=== PATIENT | male | born 1995 | race Caucasian/White ===

== ENCOUNTER 2020-03-16 14:18 | Emergency (ER) | payer BC, SELFPAY ==
[2020-03-16 14:19] VITALS: BP 152/104; PULSE 78; RESP 18; TEMP 36.4; O2SAT 99; BMI 35.2
[2020-03-16 15:10] LABS: Apearance,Urine Clear (Clear); Color,Urine Yellow (Yellow)
[2020-03-16 15:11] LABS: Bilirubin,Urine Negative (Negative); Blood, Urine Negative (Negative); Glucose,Urine (UA) Negative (Negative); Ketones,Urine Negative (Negative); Protein,Urine Negative (Negative); UTC Leukocyte Esterase,Urine Negative (Negative); UTC Nitrate,Urine Negative (Negative); Urobilinogen,Urine 0.2 EU/dl (0.2)
--- NOTE | 2020-03-16 15:24 | HMH.EDUTC ---
[facility] [place] Impression: Low back pain Qualifiers: Chronicity: unspecified Back pain laterality: right Sciatica presence: without sciatica Qualified Code(s): M54.5 - Low back pain Disposition: Home, Self-Care Condition on Discharge: Good Instructions: Low Back Pain, DI for Low Back Pain, Naproxen Additional Instructions: *Naproxen as prescribed with meal as needed for pain/inflammation *Not additional anti-inflammatory like motrin, aleve, advil with the above amount of Naproxen You can still take Tylenol every 4 hours as needed if you need something else for pain *Ice 20 minutes every 2 hours for the first 48 hours after the initial injury followed by moist heat every 20 minutes 3-4 times a day to affected area *Keep this area active, no movement leads to more stiffness, However take it easy and avoid heavy lifting pushing or pulling *Follow up with you family doctor if no improvement for further treatment Follow up with family doctor if no improvement or any worsening of symtpoms Return if needed Straight to ER if any life threatening symptoms Prescriptions: Naproxen [Naproxen 500mg tab] 500 mg PO BID 5 Days #10 tab Transmission Status: Received by [employer] [facility] #[id number] Referrals: Huy Rao MD [Primary Care Provider] - As needed Time of Disposition: 15:32 Medical Decision Making - Misael Inquiry Pt receiving controlled substance: No Misael was queried for this patient: No Vital Signs: 03/16/20 14:19 03/16/20 15:42 Temperature 97.6 F 97.6 F Temperature Source Oral Oral Pulse Rate 78 Pulse Rate [Radial] 78 Respiratory Rate 18 18 Blood Pressure 152/104 H Blood Pressure [Right Arm] 152/104 H Blood Pressure Mean [Right Arm] 120 Blood Pressure Source Automatic Cuff Blood Pressure Source [Right Arm] Automatic Cuff Blood Pressure Position Sitting Blood Pressure Position [Right Arm] Sitting 02 Sat by Pulse Oximetry 99 Oxygen Delivery Method Room Air Room Air - Lab Data Lab results reviewed: Yes: I reviewed the patient's lab results. Lab Results 03/16/20 14:56: Urine Color Yellow, Urine Appearance Clear, Urine pH 6.0, Ur Specific [place] 1.020, Urine Protein Negative, Urine Glucose (UA) Negative, Urine Ketones Negative, Urine Blood Negative, Urine Nitrate Negative, Urine Bilirubin Negative, Urine Urobilinogen 0.2, Ur Leukocyte Esterase Negative [facility] [place] - General Stated complaint: back pain in mornings Time Seen by Provider: 03/16/20 15:24 Mode of Arrival: Ambulatory Source of Information: Patient Limitations: No Limitations Description of Symptoms (Recalled from Triage Doc. by RN): States that for a couple of months now he has been having troubles with urination. Low back pain, sweet urine smell and states that he isn't peeing enough. HEENT Symptoms (Recalled from RN notes): No Resp Symptoms (Recalled from RN notes): No Skin Symptoms (Recalled from RN notes): No MS Symptoms (Recalled from RN notes): No Functional Status (Recalled from RN notes): wnl - History of Present Illness Provider Complaint: Patient states that he has been having stiffness and achy like feeling in his right lower back area for a couple months States that as he gets up and moving the pain goes away States that he hurt his back several years ago and has problems on and off State that he also wants to get checked for UTI states that when he wakes up in the morning he isnt urinating as much as he use too and it has a odor to it - Related Data Previous Rx's Medication Instructions Recorded Naproxen [Naproxen 500mg tab] 500 mg PO BID 5 Days #10 tab 03/16/20 Allergies Allergy/AdvReac Type Severity Reaction Status Date / Time Penicillins [PENICILLINS] Allergy Severe S-BLISTERING Unverified 09/06/17 14:57 WELTS - Worker's Comp Is this a Worker's Comp case?: No [facility] History - Hepatitis A Screen Drug use history?: No High risk sexual behaviors?: No History of sexually transmitt
[2020-03-16 15:42] VITALS: BP 152/104; PULSE 78; RESP 18; TEMP 36.4; O2SAT 99
== END 2020-03-16 15:43 | disposition home or self-care (01) ==
PROVIDERS: Emergency Provider Nurse Practitioner; PCP Family Medicine
DX: R31.9 Hematuria, unspecified (principal); M54.5 Low back pain; Z88.0 Allergy status to penicillin
CPT/HCPCS: 81003; 99201

== ENCOUNTER 2020-04-03 18:12 | Emergency (ER) | payer BC, SELFPAY ==
[2020-04-03 18:26] VITALS: BP 146/91; PULSE 102; RESP 20; TEMP 36.8; O2SAT 98; BMI 34.4
--- NOTE | 2020-04-03 18:31 | HMH.EDUTC ---
[facility] [place] Clinical Impression: URI (upper respiratory infection) Qualifiers: URI type: unspecified URI Qualified Code(s): J06.9 - Acute upper respiratory infection, unspecified Disposition: Home, Self-Care Condition on Discharge: Good Instructions: Sore Throat, Azithromycin Additional Instructions: *Monitor Temp, Over the counter Motrin or Tylenol as directed/as needed Tylenol every 4 hours and Motrin every 6 hours (as long as your family doctor has told you that you can take it) for fever or pain. and straight to ER if unable to lower temp less than 101.0 after medication given *Warm salt water gargles may help to soothe the throat *Throat Lozenges *Warm fluids like tea with honey may help to soothe the throat *Sleep elevated *Humidifier/Vaporizer *Flonase 2 sprays in each nostril daily but be aware that it may take 2-3 days before you notice improvement Your throat swab was sent for culture. Those results are typically sent to your primary care. Be sure to follow up in 2-3 days with your family doctor/primary care physician if no improvement so they can review those result and treat if necessary. If you don?t have a primary care doctor, I recommend you get one but in the mean time, you will have to return to a walk in clinic Follow up IMMEDIATELY for new or worsening symptoms or no Noticeable improvement over the next 48-72 hours. 911 for difficulty breathing or swallowing Prescriptions: Fluticasone Propionate [Flonase 50mcg nasal spray 16gm] 1 - 2 spr NS DAILY #1 bottle Transmission Status: Pending to [facility] # Azithromycin [Z-David 250mg Tab] 250 mg PO DIRECTED #6 tab Transmission Status: Pending to [facility] # Referrals: Huy Rao MD [Primary Care Provider] - As needed Time of Disposition: 18:39 Medical Decision Making - Misael Inquiry Pt receiving controlled substance: No Misael was queried for this patient: No Vital Signs: 04/03/20 18:26 Temperature 98.3 F Temperature Source Oral Pulse Rate [Right Brachial] 102 H Respiratory Rate 20 Blood Pressure [Right Arm] 146/91 H Blood Pressure Mean [Right Arm] 109 Blood Pressure Source [Right Arm] Automatic Cuff Blood Pressure Position [Right Arm] Sitting 02 Sat by Pulse Oximetry 98 Oxygen Delivery Method Room Air - Lab Data Lab results reviewed: Yes: I reviewed the patient's lab results. Lab Results 04/03/20 18:14: Strep Scn Rapid Clinic Negative Orders (Tests/Meds): ORDERS Category Date Time Status Strep Screen Confirmation Stat Micro 04/03/20 18:14 Received Medical Decision Narrative: Recommended COVID19 testing and patient declined [facility] [place] - General Stated complaint: cough sore throat Time Seen by Provider: 04/03/20 18:31 Mode of Arrival: Ambulatory Source of Information: Patient Limitations: No Limitations Description of Symptoms (Recalled from Triage Doc. by RN): PATIENT C/O SORE THROAT AND COUGH SINCE LAST TUESDAY HEENT Symptoms (Recalled from RN notes): Yes Resp Symptoms (Recalled from RN notes): Yes Skin Symptoms (Recalled from RN notes): No MS Symptoms (Recalled from RN notes): No Functional Status (Recalled from RN notes): WNL - History of Present Illness Provider Complaint: Patient states that he has been having sore throat on and off since last week States that he has been having sore throat and sinus congestion States that it feels like it did before when he had strep throat - Related Data Previous Rx's Medication Instructions Recorded Azithromycin [Z-David 250mg Tab] 250 mg PO DIRECTED #6 tab 04/03/20 Fluticasone Propionate [Flonase 1 - 2 spr NS DAILY #1 bottle 04/03/20 50mcg nasal spray 16gm] Allergies Allergy/AdvReac Type Severity Reaction Status Date / Time Penicillins [PENICILLINS] Allergy Severe S-BLISTERING Verified 04/03/20 18:31 WELTS - Worker's Comp Is this a Worker's Comp case?: No [facility] History - Hepatitis A Screen
[2020-04-03 18:33] LABS: UTC Strep Screen (Rapid) Negative (Negative)
[2020-04-03 18:40] VITALS: BP 146/91; PULSE 102; RESP 20; TEMP 36.8; O2SAT 98
== END 2020-04-03 18:44 | disposition home or self-care (01) ==
PROVIDERS: Emergency Provider Nurse Practitioner; PCP Family Medicine
DX: J06.9 Acute upper respiratory infection, unspecified (principal); Z88.0 Allergy status to penicillin
CPT/HCPCS: 87880; 99201

== ENCOUNTER 2022-07-23 17:31 | Emergency (ER) | payer BC, SELFPAY ==
[2022-07-23 17:43] VITALS: BP 129/76; PULSE 110; RESP 15; TEMP 37.6; O2SAT 98; BMI 34.0
--- NOTE | 2022-07-23 17:46 | EXP.UTC ---
Discharge Plan Disposition Patient Disposition: Home, Self-Care Condition: Fair Prescriptions Prescriptions: New promethazine-DM 6.25-15 mg/5 mL Syrup 5 ml PO Q6H PRN (Reason: Cough) Qty: 180 0RF prednisone [prednisone] 20 mg tablet 20 mg PO BID 5 Days Qty: 10 0RF albuterol sulfate [Ventolin HFA] 90 mcg/actuation HFA aerosol inhaler 2 puffs inhalation QIDP PRN (Reason: Wheezing) 30 Days Qty: 1 0RF No Action azithromycin 250 MG tablet 250 mg PO DIRECTED Qty: 6 0RF Rx Instructions: Take two (2) tablets on day #1, then one (1) tablet day #2 thru #5 fluticasone propionate 120 SPR/BOT bottle 1 - 2 spr NS DAILY Qty: 1 0RF Rx Instructions: each nostril daily Referrals Follow up/Referrals: Provider,Referral, MD [Primary Care Provider] - See instructions Activity Restrictions/Add. Instructions Additional Instructions/Restrictions: Upper respiratory panel pending. Please isolate yourself until test results received Clinical Impressions Clinical Impression: URI (upper respiratory infection) Stand Alone Forms Stand Alone Forms: Work/School Release Instructions Patient Instructions: DI for Influenza -- Adult Discharge ED Provider: Aaliyah Mckay [facility] [place] H[place] General Stated complaint: covid test Mode of Arrival: Ambulatory Source of Information: Patient Limitations: No Limitations Time Seen by Provider: 07/23/22 18:13 Description of Symptoms (Recalled from Triage Doc. by RN): pt comes in with c/o body aches, headache, cough. symptoms began today HEENT Symptoms (Recalled from RN notes): Yes Resp Symptoms (Recalled from RN notes): Yes Skin Symptoms (Recalled from RN notes): No MS Symptoms (Recalled from RN notes): No Functional Status (Recalled from RN notes): n/a History of Present Illness Provider Complaint: Cough, congestion, headaches, body aches X 1 day. Not sure about fever. Has severe back pain. Onset (ago): day(s) (1) Location: chest and back Relieving factors: none Exacerbating factors: none Associated symptoms: cough, fever/chills and headaches Treatments prior to arrival: none Related Data Previous Rx's Medication Instructions Recorded azithromycin 250 mg tablet 250 mg PO DIRECTED #6 tabs 04/03/20 fluticasone propionate 50 1 - 2 spr NS DAILY ##1 04/03/20 mcg/actuation nasal spray,suspension albuterol sulfate 90 mcg/actuation 2 puffs inhalation QIDP PRN 07/23/22 aerosol inhaler (Ventolin HFA) Wheezing 30 days #1 ea prednisone 20 mg tablet 20 mg PO BID 5 days #10 tabs 07/23/22 promethazine-DM 6.25 mg-15 mg/5 mL 5 ml PO Q6H PRN Cough #180 mL 07/23/22 oral syrup Allergies Allergy/AdvReac Type Severity Reaction Status Date / Time Penicillins [PENICILLINS] Allergy Severe S-BLISTERING Verified 07/23/22 17:46 WELTS Worker's Comp Is this a Worker's Comp case?: No [facility] Social History Smoking Status: Never smoker second hand exposure: No alcohol intake: never current occupational status: other Travel in the last 8 weeks: None ROS Obtained: Yes All systems reviewed & no additional complaints except as documented Constitutional Constitutional: Reports body ache, Reports chills and Reports fever(s) Respiratory Respiratory: Reports chest congestion and Reports cough Musculoskeletal Musculoskeletal: Reports back pain and Reports myalgias Physical Exam General General appearance: alert and in no apparent distress Head Head exam: atraumatic, normocephalic and normal inspection Eye Eye exam: Present normal appearance, PERRL and EOMI ENT ENT exam: Present normal exam, normal oropharynx, mucous membranes moist, TM's normal bilaterally and normal external ear exam Neck Neck exam: Present normal inspection, full ROM and trachea midline; Absent meningismus or lymphadenopathy Chest Chest inspection: Present normal inspection and symmetric chest wall rise; Absent tenderness
[2022-07-23 17:56] LABS: UTC Influenza A Antigen Negative (Negative)
[2022-07-23 17:57] LABS: UTC Influenza B Antigen Negative (Negative)
[2022-07-23 18:23] VITALS: BP 129/76; PULSE 90; RESP 15; TEMP 37.6
[2022-07-23 18:48] LABS: Adenovirus,PCR Not Detected (NotDetected); Bordetella Pertussis Not Detected (NotDetected); Chlamydophila Pneumoniae, PCR Not Detected (NotDetected); Coronavirus 229E Not Detected (NotDetected); Coronavirus NL63 Not Detected (NotDetected); Coronavirus OC43 Not Detected (NotDetected); Coronovirus HKU1,PCR Not Detected (NotDetected); Human Metapneumovirus Not Detected (NotDetected); Influenza A, PCR Not Detected (NotDetected); Influenza AH1, 2009 Not Detected (NotDetected); Influenza AH1, PCR Not Detected (NotDetected); Influenza AH3,PCR Not Detected (NotDetected); Influenza B, PCR Not Detected (NotDetected); Mycoplasma Pneumoniae, PCR Not Detected (NotDetected); Parainfluenza 1, PCR Not Detected (NotDetected); Parainfluenza 2, PCR Not Detected (NotDetected); Parainfluenza 3, PCR Not Detected (NotDetected); Parainfluenza 4, PCR Not Detected (NotDetected); Respiratory Syncytial Virus Not Detected (NotDetected); Rhinovirus/Enterovirus Not Detected (NotDetected)
[2022-07-23 22:44] LABS: Coronavirus 19, PCR Detected (NotDetected)
== END 2022-07-23 18:28 | disposition home or self-care (01) ==
PROVIDERS: Emergency Provider Physician Assistant
DX: J06.9 Acute upper respiratory infection, unspecified (principal)
CPT/HCPCS: 87581; 87632; 87798; 87804; 99212; C9803; G0463; U0003; U0005

== ENCOUNTER 2023-08-28 15:10 | Emergency (ER) | payer BC, SELFPAY ==
[2023-08-28 15:25] VITALS: BP 136/87; PULSE 74; RESP 18; TEMP 37.1; O2SAT 98; BMI 29.5
--- NOTE | 2023-08-28 15:44 | EXP.UTC ---
Discharge Plan Disposition Patient Disposition: Home, Self-Care Condition: Good Prescriptions Prescriptions: New azithromycin [Zithromax Z-David] 250 mg tablet See Rx Instructions .ROUTE .COMPLEX 5 Days Qty: 6 0RF Rx Instructions: For 250 mg dose pack: take 500 mg today (day 1), then 250 mg for 4 days (days 2-5) methylprednisolone [Medrol (David)] 4 mg tablets,dose pack See Rx Instructions .Route .COMPLEX 6 Days Qty: 21 0RF Rx Instructions: taper pack; qowdkugqgmyhiqv-hpfhhubdl-AF [Bromfed DM] 2-30-10 mg/5 mL Syrup 10 ml PO Q4H PRN (Reason: Cough) Qty: 240 0RF guaifenesin [Mucinex] 600 mg tablet extended release 12hr 1,200 mg PO BID PRN (Reason: cough) Qty: 20 0RF Referrals Follow up/Referrals: Huy Rao MD [Primary Care Provider] - See instructions Activity Restrictions/Add. Instructions Additional Instructions/Restrictions: *Monitor Temp, Over the counter Motrin or Tylenol as directed/as needed Tylenol every 4 hours and Motrin every 6 hours (as long as your family doctor has told you that you can take it) for fever or pain. and straight to ER if unable to lower temp less than 101.0 after medication given *Warm salt water gargles may help to soothe the throat *Throat Lozenges? *Warm fluids like tea with honey may help to soothe the throat? *Sleep elevated *Humidifier/Vaporizer *Bromfed may cause drowsiness. Know how it effects you (your child) before driving, caring for small child, or sending your child to school. Not other antihistamines/allergy medications while taking bromfed Your throat swab was sent for culture. Those results are typically sent to your primary care. Be sure to follow up in 2-3 days with your family doctor/primary care physician if no improvement so they can review those result and treat if necessary. If you don?t have a primary care doctor, I recommend you get one but in the mean time, you will have to return to a walk in clinic Follow up IMMEDIATELY for new or worsening symptoms or no Noticeable improvement over the next 48-72 hours. 911 for difficulty breathing or swallowing Clinical Impressions Clinical Impression: Sinusitis Qualifiers: Sinusitis location: unspecified location Chronicity: unspecified Qualified Code(s): J32.9 - Chronic sinusitis, unspecified Instructions Patient Instructions: Sinusitis, DI for Sinusitis Discharge ED Provider: Monica Davis [facility] [place] HPI General Stated complaint: cough, fever, congestion Mode of Arrival: Ambulatory Source of Information: Patient Limitations: No Limitations Time Seen by Provider: 08/28/23 15:44 Description of Symptoms (Recalled from Triage Doc. by RN): PATIENT C/O COUGH, FEVER, CONGESTION, AND DIZZINESS X 1 WEEK HEENT Symptoms (Recalled from RN notes): Yes Resp Symptoms (Recalled from RN notes): Yes Skin Symptoms (Recalled from RN notes): No MS Symptoms (Recalled from RN notes): No Functional Status (Recalled from RN notes): WNL History of Present Illness Provider Complaint: Patient states that for the last week he has been having sinus pain and pressure, thick yellowish green drainage from his sinuses, sore throat, pressure like pain in his ears that at times makes him feel a little dizzy and over all not feeling well States that today he was still not feeling well so he came in to get checked Related Data Previous Rx's Medication Instructions Recorded azithromycin 250 mg tablet See Rx Instructions PO .COMPLEX 5 08/28/23 (Zithromax Z-David) days #6 tabs dvmimdthfjlyugp-mavkjbmwpjgtxcp-OQ 10 ml PO Q4H PRN Cough #240 mL 08/28/23 2 mg-30 mg-10 mg/5 mL oral syrup (Bromfed DM) guaifenesin 600 mg tablet, 1,200 mg PO BID PRN cough #20 tabs 08/28/23 extended release 12 hr (Mucinex) methylprednisolone 4 mg tablets in See Rx Instructions .Route 08/28/23 a dose pack (Medrol (David)) .COMPLEX 6 days #21 tabs Allergies Allergy/AdvReac Type Severity Reaction St
[2023-08-28 16:00] VITALS: BP 136/87; PULSE 74; RESP 18; TEMP 37.1; O2SAT 98
[2023-08-28 16:00] LABS: UTC Strep Screen (Rapid) Negative (Negative)
[2023-08-28 16:01] LABS: UTC Influenza A Antigen Negative (Negative); UTC Influenza B Antigen Negative (Negative)
== END 2023-08-28 16:26 | disposition home or self-care (01) ==
PROVIDERS: Emergency Provider Nurse Practitioner; PCP Family Medicine
DX: J01.90 Acute sinusitis, unspecified (principal); R50.9 Fever, unspecified; R05.9 Cough, unspecified; R09.81 Nasal congestion; R51.9 Headache, unspecified; R07.0 Pain in throat; R09.89 Other specified symptoms and signs involving the circulatory and respiratory systems
CPT/HCPCS: 87804; 87880; 99212; 99214; G0463

== ENCOUNTER 2024-01-23 09:25 | Emergency (ER) | payer BC, SELFPAY ==
[2024-01-23 09:30] VITALS: BP 148/112; PULSE 73; O2SAT 98
--- NOTE | 2024-01-23 09:32 | HMH.EDGENADL ---
Discharge Plan Disposition Patient Disposition: Home, Self-Care Prescriptions Prescriptions: New ondansetron 4 mg tablet,disintegrating 4 mg PO Q8H PRN (Reason: nausea and vomiting) 4 Days Qty: 12 0RF No Action azithromycin [Zithromax Z-David] 250 mg tablet See Rx Instructions .ROUTE .COMPLEX 5 Days Qty: 6 0RF Rx Instructions: For 250 mg dose pack: take 500 mg today (day 1), then 250 mg for 4 days (days 2-5) methylprednisolone [Medrol (David)] 4 mg tablets,dose pack See Rx Instructions .Route .COMPLEX 6 Days Qty: 21 0RF Rx Instructions: taper pack; hykfvzegldbwmee-zfrmuzool-WL [Bromfed DM] 2-30-10 mg/5 mL Syrup 10 ml PO Q4H PRN (Reason: Cough) Qty: 240 0RF guaifenesin [Mucinex] 600 mg tablet extended release 12hr 1,200 mg PO BID PRN (Reason: cough) Qty: 20 0RF Referrals Follow up/Referrals: Paolo Lilly MD [Primary Care Provider] - See instructions Activity Restrictions/Add. Instructions Additional Instructions/Restrictions: At this time it was felt you are safe to be discharged home. If new or worsening symptoms please do not hesitate to return the emergency department. Please follow-up with your family doctor within the next week or two to repeat your calcium testing to make sure it returns to normal. Please take your medication as prescribed. Clinical Impressions Clinical Impression: Vomiting, Diarrhea, Hypercalcemia Instructions Patient Instructions: DI for Diarrhea and Traveler's Diarrhea -- Adult, DI for Diarrhea and Traveler's Diarrhea -- Child, DI for Nausea -- Adult, DI for Nausea -- Child Discharge ED Provider: Dameon Gibson General Adult HPI General Chief complaint: Nausea/Vomiting/Diarrhea Stated complaint: abd pain, diarrhea Time Seen by Provider: 01/23/24 10:13 History of Present Illness HPI narrative: Patient is a 28-year-old male with no pertinent past medical history presents emergency department for evaluation of vomiting, diarrhea. Onset was acute, over the last few days. Patient was eating out of the refrigerator that had lost antifreeze and therefore its ability to cool eating possible food. He has since had development of nonbloody watery diarrhea and nonbloody vomiting. There is associated generalized weakness. No abdominal pain although he has felt some bloating over the weekend. No other acute complaints at this time. Related Data Previous Rx's Medication Instructions Recorded azithromycin 250 mg tablet See Rx Instructions PO .COMPLEX 5 08/28/23 (Zithromax Z-David) days #6 tabs joycehkkkbmatid-vyndbhpqrxqeear-ZD 10 ml PO Q4H PRN Cough #240 mL 08/28/23 2 mg-30 mg-10 mg/5 mL oral syrup (Bromfed DM) guaifenesin 600 mg tablet, 1,200 mg (2 x 600 mg) PO BID PRN 08/28/23 extended release 12 hr (Mucinex) cough #20 tabs methylprednisolone 4 mg tablets in See Rx Instructions .Route 08/28/23 a dose pack (Medrol (David)) .COMPLEX 6 days #21 tabs ondansetron 4 mg disintegrating 4 mg PO Q8H PRN nausea and 01/23/24 tablet vomiting 4 days #12 tabs Allergies Allergy/AdvReac Type Severity Reaction Status Date / Time Penicillins [PENICILLINS] Allergy Severe S-BLISTERING Verified 07/23/22 17:46 [facility] Disclaimer: The information contained in this section may have been updated after the patient was seen, as this information can be updated by other users. Surgical History (Updated 08/28/23 @ 15:42 by Jackie Ruvalcaba RN) H/O wisdom tooth extraction History of appendectomy Social History Smoking Status: Never smoker second hand exposure: No alcohol intake: never current occupational status: other Travel in the last 8 weeks: None ROS Obtained: Yes Systems reviewed as appropriate & no additional complaints except as documented Physical Exam General General appearance: alert and in no apparent distress Head Head exam: atraumatic and normocephalic Eye Eye exam: Present PERRL ENT ENT exam: Present mucous membranes moist Neck Neck exam: Present normal inspection Chest Chest inspection: Present normal inspection and symmetric chest wall rise Respiratory Respiratory exam: Present normal lung sounds bilaterally; Absent respiratory distress Cardiovascular Cardiovascular exam: Present regular rate and normal rhythm Abdominal Exam Abdominal exam: Present soft; Absent tenderness, guarding or rebound Extremities Exam Extremities exam: Present normal inspection Neurological Exam Neurological exam: Present alert Psychiatric Psychiatric exam: Present normal affect Skin Skin exam: Present warm and dry Medical Decision Making Misael Inquiry Pt receiving controlled substance: No Vital Signs: 01/23/24 09:30 01/23/24 09:35 01/23/24 10:31 Temperature 98.3 F Temperature Source Oral Pulse Rate 73 52 L Pulse Rate [Left Radial] 75 Respiratory Rate 20 Blood Pressure 148/112 H 107/62 L Blood Pressure [Right Arm] 148/112 H Blood Pressure Mean [Right Arm] 124 02 Sat by Pulse Oximetry 98 98 97 Oxygen Delivery Method Room Air Room Air Room Air Lab Data Lab Results 01/23/24 09:35: WBC 15.5 H, RBC 5.33, Hgb 16.8, Hct 49.8, MCV 93.4, MCH 31.5 H, MCHC 33.7, RDW 12.6, Plt Count 390, MPV 8.6, Neut % (Auto) 84.3 H, Lymph % (Auto) 10.8, Cotton % (Auto) 3.5, Eos % (Auto) 1.0, Baso % (Auto) 0.4, Neut # (Auto) 13.1 H, Lymph # (Auto) 1.7, Cotton # (Auto) 0.6, Eos # (Auto) 0.2, Baso # (Auto) 0.1, Total Counted 100, Neutrophils % (Manual) 86 H, Lymphocytes % (Manual) 9 L, Monocytes % (Manual) 4, Eosinophils % (Manual) 1, Platelet Estimate Normal, RBC Morphology Normal, Sodium 140, Potassium 4.6, Chloride 107, Carbon Dioxide 25, Anion Gap 12.6, BUN 13, Creatinine 0.80, Estimated Creat Clear 176, Estimated GFR 115, Est GFR ( Amer) 139, Glucose 116 H, Calcium 10.7 H, Total Bilirubin 0.8, AST 26, ALT 24, Alkaline Phosphatase 83, Total Protein 8.7 H, Albumin 5.1 H, Globulin 3.6 H, Albumin/Globulin Ratio 1.4, Lipase 92 01/23/24 09:35 01/23/24 09:35 Orders (Tests/Meds): ED MEDICATIONS Discontinued Medications Generic Name Dose Route Start Last Admin Trade Name Freq PRN Reason Stop Dose Admin Lactated Ringer's 1,000 mls @ 999 mls/hr 01/23/24 09:31 01/23/24 09:39 Lactated Ringer's 1000 Ml Bag IV 01/23/24 10:31 999 mls/hr .Q1H1M ONE Administration Ondansetron HCl 4 mg 01/23/24 09:31 01/23/24 09:39 Ondansetron 4mg/2ml Vial IV 01/23/24 09:32 4 mg ONCE ONE Administration ORDERS Category Date Time Status CBC w/Auto Diff [Complete Blood Count Auto Diff] Stat Lab 01/23/24 09:35 Completed CMP [Comprehensive Metabolic Panel] Stat Lab 01/23/24 09:35 Completed Lipase Stat Lab 01/23/24 09:35 Completed Medical Decision Narrative: In summary patient is a 28-year-old male past medical history described above who presents emergency department for evaluation of vomiting, diarrhea. Patient is hemodynamically stable and nontoxic-appearing upon arrival, afebrile. Differential diagnosis includes toxin mediated gastroenteritis, viral syndrome, pancreatitis, electrolyte abnormality, among others. Workup will be conducted with hematologic labs. Initial inventions include crystalloid bolus and Zofran. Intra-abdominal imaging was considered however patient has a benign abdominal exam and therefore will be deferred. Initial workup reviewed by me, hematologic labs are nonactionable, nonspecific leukocytosis, mild hypercalcemia. On repeat evaluation patient continued to be hemodynamically stable and tolerating p.o. at bedside is appropriate for discharge at this time. Critical Care Critical Care Time Critical Care Time: No
[2024-01-23 09:35] VITALS: BP 148/112; PULSE 75; RESP 20; TEMP 36.8; O2SAT 98; BMI 29.5
[2024-01-23] MEDS: LACTATED RINGERS 1000ML 1,000 ML 999 ML IV (09:39)
[2024-01-23] MEDS: ONDANSETRON 4MG/2ML VIAL 4 MG IV (09:39)
[2024-01-23 09:45] LABS: Basophils # 0.1 K/mm3 (0-0.2); Basophils % 0.4 % (0.1-2.0); Eosinophils # 0.2 K/mm3 (0.0-0.4); Hematocrit 49.8 % (42.0-52.0); Hemoglobin 16.8 g/dL (14.1-18.0); Lymphocytes # 1.7 K/mm3 (0.7-4.5); Lymphocytes % 10.8 % (10-50); Mean Corpuscular HGB Conc 33.7 g/dL (31.8-35.4); Mean Corpuscular Hemoglobin 31.5 pg (27.0-31.2); Mean Corpuscular Volume 93.4 fl (80-94); Mean Platelet Volume 8.6 fl (7.4-10.4); Monocytes # 0.6 K/mm3 (0.1-1.0); Monocytes % 3.5 % (1.7-9.3); Neutrophils # 13.1 K/mm3 (1.8-7.8); Neutrophils % 84.3 % (37.0-80.0); Platelet Count 390 K/mm3 (142-424); Red Blood Count 5.33 M/mm3 (4.60-6.20); Red Cell Distribution Width 12.6 % (11.5-17.5); White Blood Count 15.5 K/mm3 (4.8-10.8)
--- NOTE | 2024-01-23 09:45 | PC.NURSE ---
assisted pt to the bathroom. steady gait noted. urine collected and sent to lab. pt assisted back to room. hooked back up to blood pressure cuff. call light within reach.
[2024-01-23 09:47] LABS: MANUAL DIFFERENTIAL MANUAL DIFFERENTIAL (MANUAL DIFF)
[2024-01-23 09:48] LABS: Chloride 107 mmol/L (98-107)
[2024-01-23 09:49] LABS: Potassium 4.6 mmoL/L (3.5-5.1); Sodium 140 mmol/L (136-145)
[2024-01-23 09:51] LABS: Alanine Aminotransferase 24 U/L (12-78); Aspartate Amino Transferase 26 U/L (17-59); Blood Urea Nitrogen 13 mg/dl (9-20); Creatinine Clearance Estimated 176 mL/min (50-200); Estimated Glomerular Filt Rate 115 ml/min (>60); GFR (African American) 139 ML/MIN (>60)
[2024-01-23 09:52] LABS: Albumin Level 5.1 g/dl (3.5-5.0); Albumin/Globulin Ratio 1.4 (1.1-1.8); Alkaline Phosphatase 83 U/L (38-126); Anion Gap 12.6 mEq/L (5-15); Bilirubin,Total 0.8 mg/dl (0.2-1.3); Calcium 10.7 mg/dl (8.4-10.2); Carbon Dioxide 25 mmol/L (22.0-30.0); Globulin 3.6 g/dL (1.3-3.2); Glucose 116 mg/dl (74-100); Lipase 92 U/L (23-300); Total Protein,Serum 8.7 g/dl (6.3-8.2)
[2024-01-23 10:04] LABS: Eosinophils % 1 % (0-3); Lymphocytes % 9 % (10-50); Monocytes % 4 % (2-9); Neutrophils % 86 % (42-76); Platelet Estimate Normal; RBC Morphology Normal; Total Cells Counted 100
[2024-01-23 10:31] VITALS: BP 107/62; PULSE 52; O2SAT 97
[2024-01-23 10:49] VITALS: BP 107/62; PULSE 58; RESP 20; TEMP 36.8; O2SAT 97
== END 2024-01-23 10:50 | disposition home or self-care (01) ==
PROVIDERS: Emergency Provider Emergency Medicine; PCP Pediatrics
DX: R11.2 Nausea with vomiting, unspecified (principal); R19.7 Diarrhea, unspecified; E83.52 Hypercalcemia
CPT/HCPCS: 80053; 83690; 85007; 85025; 96361; 96374; 99284; J2405

== ENCOUNTER 2024-04-09 15:42 | Emergency (ER) | payer BC, SELFPAY ==
[2024-04-09 16:05] VITALS: BP 130/62; PULSE 65; RESP 20; TEMP 37.2; O2SAT 97; BMI 30.4
--- NOTE | 2024-04-09 16:13 | EXP.UTC ---
Discharge Plan Disposition Patient Disposition: Home, Self-Care Condition: Good Prescriptions Prescriptions: New azithromycin [Zithromax] 250 mg tablet 250 mg PO UD DOSE PK Qty: 6 0RF Rx Instructions: Take two (2) tablets today, then one (1) tablet days #2 thru #5 methylprednisolone 4 mg Tablets,Dose Pack 4 mg PO DIRECTED 6 Days Qty: 21 0RF Rx Instructions: Take 1 pack as directed for 6 days aarycpnqohablwl-rykljulte-OE [Bromfed DM] 2-30-10 mg/5 mL Syrup 5 ml PO Q6H PRN (Reason: Cough) Qty: 240 0RF Referrals Follow up/Referrals: Paolo Lilly MD [Primary Care Provider] - See instructions Activity Restrictions/Add. Instructions Additional Instructions/Restrictions: Drink plenty of fluids. Take tylenol or ibuprofen for pain or fever. Take the medications as directed. Follow up with your regular doctor. GO TO THE ER FOR ANY WORSENING SYMPTOMS Clinical Impressions Clinical Impression: Pharyngitis Stand Alone Forms Stand Alone Forms: Work/School Release Instructions Patient Instructions: Sore Throat, DI for Pharyngitis/Tonsillopharyngitis -- Adult Discharge ED Provider: Watson Loredo [facility] General Stated complaint: Sore throat Time Seen by Provider: 04/09/24 16:06 History of Present Illness Provider Complaint: He states that for the past 2 days he has had worsening sore throat, ear pain, and malaise. He denies fever and body aches. He denies any exposure to covid-19. Related Data Previous Rx's Medication Instructions Recorded azithromycin 250 mg tablet 250 mg PO UD DOSE PK #6 tabs 04/09/24 (Zithromax) fpznklmblfxmfjd-gtszxvissqpxyew-GK 5 ml PO Q6H PRN Cough #240 mL 04/09/24 2 mg-30 mg-10 mg/5 mL oral syrup (Bromfed DM) methylprednisolone 4 mg tablets in 4 mg PO DIRECTED 6 days #21 tabs 04/09/24 a dose pack Allergies Allergy/AdvReac Type Severity Reaction Status Date / Time Penicillins [PENICILLINS] Allergy Severe S-BLISTERING Verified 07/23/22 17:[address] [facility] Disclaimer: The information contained in this section may have been updated after the patient was seen, as this information can be updated by other users. Surgical History (Updated 08/28/23 @ 15:42 by Jackie Ruvalcaba RN) H/O wisdom tooth extraction History of appendectomy Social History Smoking Status: Never smoker second hand exposure: No alcohol intake: never current occupational status: other Travel in the last 8 weeks: None ROS Obtained: Yes All systems reviewed & no additional complaints except as documented Constitutional Constitutional: Reports chills and Reports fever(s) Eyes Eyes: Denies eye discharge ENT Ears, Nose, Mouth, and Throat: Reports as per HPI Cardiovascular Cardiovascular: Denies chest pain Respiratory Respiratory: Denies chest congestion and Reports cough Gastrointestinal Gastrointestingal: Reports nausea; Denies abdominal pain, constipation, cramping, diarrhea or vomiting Musculoskeletal Musculoskeletal: Denies arthralgias Integumentary/Breasts Skin/Breast: Denies rash Neurologic Neurologic: Denies paresthesias Physical Exam General General appearance: alert and in no apparent distress Head Head exam: atraumatic, normocephalic and normal inspection Eye Eye exam: Present normal appearance, PERRL and EOMI ENT ENT exam: Present mucous membranes moist and normal external ear exam Expanded ENT Exam TM/Canal exam: Bilateral TM: erythema and bulging Nose exam: Absent sinus tenderness Mouth exam: Present normal external inspection; Absent drooling Teeth exam: Present normal inspection Throat exam: Present tonsillar erythema, tonsillomegaly and tonsillar exudate Neck Neck exam: Present normal inspection, full ROM and trachea midline; Absent tenderness, meningismus or lymphadenopathy Chest Chest inspection: Present normal inspection and symmetric chest wall rise; Absent tenderness Respiratory Respiratory exam: Present normal lung sounds bilaterally; Absent respiratory distress, wheezes, stridor or accessory muscle use Cardiovascular Cardiovascular exam: Present regular rate and normal rhythm; Absent systolic murmur or diastolic murmur Abdominal Exam Abdominal exam: Present soft and normal bowel sounds; Absent distention, tenderness, guarding, rebound or rigidity Extremities Exam Extremities exam: Present normal inspection and normal capillary refill; Absent calf tenderness Back Exam Back exam: Present normal inspection and full ROM; Absent tenderness, CVA tenderness (R) or CVA tenderness (L) Neurological Exam Neurological exam: Present alert, oriented X3 and CN II-XII intact Psychiatric Psychiatric exam: Present normal affect and normal mood Skin Skin exam: Present warm, dry, intact and normal color Medical Decision Making Medical Records Medical records reviewed: No I reviewed the patient's medical records. Misael Fernandez Pt receiving controlled substance: No Lab Data Lab results reviewed: Yes I reviewed the patient's lab results.
[2024-04-09 16:17] LABS: UTC Strep Screen (Rapid) Negative (Negative)
[2024-04-09 16:30] VITALS: BP 130/62; PULSE 65; RESP 20; TEMP 37.2; O2SAT 97
== END 2024-04-09 16:31 | disposition home or self-care (01) ==
PROVIDERS: Emergency Provider Nurse Practitioner Family; PCP Pediatrics
DX: J02.9 Acute pharyngitis, unspecified (principal); H92.09 Otalgia, unspecified ear; R53.81 Other malaise
CPT/HCPCS: 87880; 99212; 99214; G0463

== ENCOUNTER 2024-12-24 09:38 | Emergency (ER) | payer BC, SELFPAY ==
[2024-12-24 09:50] VITALS: BP 142/66; PULSE 82; RESP 18; O2SAT 99; BMI 28.8
[2024-12-24 09:53] LABS: Coronavirus 19, PCR Not Detected (NotDetected); Influenza A, PCR Not Detected (NotDetected); Influenza B, PCR Not Detected (NotDetected)
[2024-12-24 10:05] LABS: Microscopic, Urine URINE MICROSCOPIC (MICROSCOPIC)
[2024-12-24 10:07] LABS: Appearance,Urine CLEAR (Clear); Bilirubin,Urine Negative (Negative); Blood, Urine Negative (Negative); Color,Urine YELLOW (Yellow); Glucose,Urine (UA) Negative (Negative); Ketones,Urine Negative (Negative); Leukocyte Esterase,Urine Negative (Negative); Nitrate,Urine Negative (Negative); PH,Urine 6.5 (5.0-8.5); Protein,Urine Negative (Negative); Specific Gravity, Urine 1.015 (1.005-1.030); Urobilinogen,Urine 0.2 EU/dl (0.2)
[2024-12-24 10:16] LABS: Bacteria,Urine Trace /lpf; Squamous Epithelial Cell,Urine Occasional #/hpf (0-5); WBC,Urine Occasional #/hpf (0-3)
--- NOTE | 2024-12-24 10:50 | XR_ITS ---
FINAL REPORT CLINICAL HISTORY: chronic back pain L sciatica COMPARISON: None FINDINGS: 3 views of the lumbar spine were obtained. There is no evidence of fracture. There is no malalignment. The vertebrae are normal in height. Disc spaces are preserved. No paraspinous soft tissue abnormalities identified. IMPRESSION: No acute bony abnormality. Reviewed, Interpreted and Dictated by Hal Newman MD Transcribed by Ellyn Bryant Authenticated and . [facility]
--- NOTE | 2024-12-24 10:50 | XR_ITS ---
FINAL REPORT TECHNIQUE: Chest PA & Lateral CLINICAL HISTORY: cough >1 wk COMPARISON: None FINDINGS: 2 views of the chest were performed. The heart size is normal. The mediastinum is within normal limits. There is no acute cardiopulmonary process. There are no pleural effusions. There is no pneumothorax. The bony thorax appears intact. IMPRESSION: No acute cardiopulmonary process. Reviewed, Interpreted and Dictated by Hal Newman MD Transcribed by Ellyn Bryant Authenticated and [facility]
[2024-12-24] MEDS: IBUPROFEN 400 MG TABLET 800 MG PO (11:04)
[2024-12-24] MEDS: ACETAMINOPHEN 500MG TAB 1000 MG PO (11:04)
[2024-12-24 12:20] LABS: Basophils # 0.1 K/mm3 (0-0.2); Basophils % 0.5 % (0.1-2.0); Eosinophils # 0.1 K/mm3 (0.0-0.4); Eosinophils % 0.9 % (0.1-12.0); Hematocrit 45.4 % (42.0-52.0); Hemoglobin 15.9 g/dL (14.1-18.0); Lymphocytes # 2.5 K/mm3 (0.7-4.5); Lymphocytes % 26.9 % (10-50); Mean Corpuscular Hemoglobin 31.1 pg (27.0-31.2); Mean Corpuscular Volume 88.8 fl (80-94); Mean Platelet Volume 10.7 fl (7.4-10.4); Monocytes # 0.7 K/mm3 (0.1-1.0); Monocytes % 7.3 % (1.7-9.3); Neutrophils % 64.3 % (37.0-80.0); Platelet Count 311 K/mm3 (142-424); Red Blood Count 5.11 M/mm3 (4.60-6.20); Red Cell Distribution Width 11.7 % (11.5-17.5); White Blood Count 9.4 K/mm3 (4.8-10.8)
--- NOTE | 2024-12-24 12:30 | PC.NURSE ---
POST VOID 0MLS
[2024-12-24 12:38] LABS: Alanine Aminotransferase 27 U/L (12-78); Albumin Level 5.1 g/dl (3.5-5.0); Albumin/Globulin Ratio 1.4 (1.1-1.8); Alkaline Phosphatase 83 U/L (38-126); Aspartate Amino Transferase 45 U/L (17-59); Bilirubin,Total 0.8 mg/dl (0.2-1.3); Blood Urea Nitrogen 12 mg/dl (9-20); Carbon Dioxide 25 mmol/L (22.0-30.0); Chloride 105 mmol/L (98-107); Creatinine Clearance Estimated 166 mL/min (50-200); Estimated Glomerular Filt Rate 114 ml/min (>60); GFR (African American) 138 ML/MIN (>60); Globulin 3.6 g/dL (1.3-3.2); Glucose 102 mg/dl (74-100); Sodium 142 mmol/L (136-145); Total Protein,Serum 8.7 g/dl (6.3-8.2)
[2024-12-24 12:50] VITALS: BP 138/70; PULSE 80; RESP 18; TEMP 36.7; O2SAT 99
--- NOTE | 2024-12-24 13:24 | HMH.EDGENADL ---
Discharge Plan Disposition Patient Disposition: Home, Self-Care Condition: Good Prescriptions Prescriptions: New doxycycline hyclate 100 mg tablet 100 mg PO BID 14 Days Qty: 28 0RF No Action azithromycin [Zithromax] 250 mg tablet 250 mg PO UD DOSE PK Qty: 6 0RF Rx Instructions: Take two (2) tablets today, then one (1) tablet days #2 thru #5 methylprednisolone 4 mg Tablets,Dose Pack 4 mg PO DIRECTED 6 Days Qty: 21 0RF Rx Instructions: Take 1 pack as directed for 6 days sbmitczfoghcmoa-yrijtyair-KU [Bromfed DM] 2-30-10 mg/5 mL Syrup 5 ml PO Q6H PRN (Reason: Cough) Qty: 240 0RF Referrals Follow up/Referrals: Eliel Umanzor DO [Staff Physician] - See instructions Provider,Referral, [Primary Care Provider] - See instructions Activity Restrictions/Add. Instructions Additional Instructions/Restrictions: You were evaluated in the emergency department today. At this time, your x-rays and labs are normal. 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 Take Tylenol and ibuprofen as needed for pain/fever. It is important that you follow-up closely on an outpatient basis with her primary care provider for further evaluation and management of the issues that you have been dealing with. I have provided you with information for Dr. Umanzor, but you may choose any primary care provider you would like to see. Return to the emergency department for new or worsening symptoms. Clinical Impressions Clinical Impression: URI (upper respiratory infection), Chronic back pain, Urinary frequency Stand Alone Forms Stand Alone Forms: Work/School Release Instructions Patient Instructions: DI for Sinusitis, DI for Acute Bronchitis Print Language Print Language: Swedish Discharge ED Provider: Irena Solis General Adult HPI General Chief complaint: Upper Respiratory Infection Stated complaint: Congestion, headache, dizz. smell & taste gone Time Seen by Provider: 12/24/24 10:39 Mode of Arrival: Ambulatory Source of Information: Patient Description of Symptoms (Recalled from ER Triage Doc. by RN): pt c/o cough, congestion, itchy throat, and loss of taste and smell that began on 12/17/24 and has gotten worse. pt is also having swelling to his right foot and right back pain. pt is concerned about his kidney function and having diabetes. History of Present Illness HPI narrative: This patient is a 29-year-old male presenting to the emergency department for evaluation of concern for multiple complaints. Patient reports that his most recent complaints are cough and congestion for over 1 week, stating that he is coughing things up. He also states that he has chronically had right-sided low back pain radiating down his right leg with some right foot pain and swelling as well. He notes that this has been going on for years but he has not seen anyone for this. He notes that he feels like he does not empty his bladder all the way and has to pee frequently at night, so he is concerned he could have kidney issues. He also notes concern that he could have diabetes. No other concerns or complaints at this time. He does not follow with a primary care doctor. He is ambulatory without issue. No numbness, tingling, or saddle anesthesia. No recent falls or traumatic injuries. Related Data Previous Rx's ?Medication ?Instructions ?Recorded azithromycin 250 mg tablet 250 mg PO UD DOSE PK #6 tabs 04/09/24 (Zithromax) lcuwqifrzacigzr-mcryulkfwtwbkhi-PG 5 ml PO Q6H PRN Cough #240 mL 04/09/24 2 mg-30 mg-10 mg/5 mL oral syrup (Bromfed DM) methylprednisolone 4 mg tablets in 4 mg PO DIRECTED 6 days #21 tabs 04/09/24 a dose pack doxycycline hyclate 100 mg tablet 100 mg PO BID 14 days #28 tabs 12/24/24 Allergies Allergy/AdvReac Type Severity Reaction Status Date / Time Penicillins (PENICILLINS) Allergy Severe S-BLISTERING Verified 07/23/22 17:46 [facility] Disclaimer: The information contained in this section may have been updated after the patient was seen, as this information can be updated by other users. Surgical History H/O wisdom tooth extraction History of appendectomy Social History Smoking Status: Never smoker second hand exposure: No alcohol intake: never current occupational status: other Travel in the last 8 weeks: None Have you lived/traveled outside [place] in past 30 days?: No Contact w/someone who lives/traveled outside [place] past 30 days?: No Exposure to someone with infectious disease in past 14 days?: No Do you have a fever (greater than 100.4 F or 38 C)?: No Have you tested positive for COVID-19: No Exposed to someone with COVID-19 in past 14 days?: No Do you have a sore throat?: No Do you have a cough?: Yes Do you have any weakness?: No Do you have any diarrhea?: No Are you experiencing any unusual bleeding?: No Do you have any muscle aches/pain?: No Do you have any abdominal pain?: No Are you experiencing loss of taste or smell?: Yes ROS Obtained: Yes All systems reviewed & no additional complaints except as documented Physical Exam General General appearance: alert and in no apparent distress Head Head exam: atraumatic and normocephalic Eye Eye exam: Present normal appearance, PERRL and EOMI ENT ENT exam: Present normal exam, normal oropharynx, mucous membranes moist and normal external ear exam Neck Neck exam: Present normal inspection, full ROM and trachea midline; Absent tenderness Chest Chest inspection: Present normal inspection and symmetric chest wall rise; Absent tenderness Respiratory Respiratory exam: Present normal lung sounds bilaterally; Absent respiratory distress, wheezes, stridor or accessory muscle use Cardiovascular Cardiovascular exam: Present regular rate and normal rhythm Abdominal Exam Abdominal exam: Present soft; Absent distention, tenderness or guarding Extremities Exam Extremities exam: Present normal inspection, full ROM and normal capillary refill; Absent tenderness or edema Back Exam Back exam: Present normal inspection and full ROM; Absent tenderness Neurological Exam Neurological exam: Present alert, oriented X3, CN II-XII intact and normal gait; Absent motor sensory deficit Psychiatric Psychiatric exam: Present normal affect and normal mood Skin Skin exam: Present warm and dry Medical Decision Making Medical Records Medical records reviewed: Yes I reviewed the patient's medical records. Screening: Per USPSTF and CDC recommendations, given the prevalence of disease in our region, it is our hospital?s policy to screen for HIV and viral Hepatitis for all patients aged 18 and over and those with ongoing risk factors. Misael Inquiry Pt receiving controlled substance: No Vital Signs: 12/24/24 09:50 12/24/24 12:50 Temperature 98.1 F Temperature Source Oral Oral Pulse Rate 80 Pulse Rate [Left] 82 Respiratory Rate 18 18 Blood Pressure 138/70 Blood Pressure [Left Arm] 142/66 H Blood Pressure Mean [Left Arm] 91 Blood Pressure Source Automatic Cuff Blood Pressure Source [Left Arm] Automatic Cuff Blood Pressure Position Sitting Blood Pressure Position [Left Arm] Supine 02 Sat by Pulse Oximetry 99 Oxygen Delivery Method Room Air Room Air Lab Data Lab results reviewed: Yes I reviewed the patient's lab results. Lab Results 12/24/24 09:43: SARS-CoV-2 (PCR) Not detected, Influenza A Untype (PCR) Not detected, Influenza Type B (PCR) Not detected 12/24/24 10:00: Urine Color Yellow, Urine Appearance Clear, Urine pH 6.5, Ur Specific [place] 1.015, Urine Protein Negative, Urine Glucose (UA) Negative, Urine Ketones Negative, Urine Blood Negative, Urine Nitrate Negative, Urine Bilirubin Negative, Urine Urobilinogen 0.2, Ur Leukocyte Esterase Negative, Urine RBC None, Urine WBC Occasional, Ur Squamous Epith Cells Occasional, Urine Bacteria Trace 12/24/24 12:10: WBC 9.4, RBC 5.11, Hgb 15.9, Hct 45.4, MCV 88.8, MCH 31.1, MCHC 35.0, RDW 11.7, Plt Count 311, MPV 10.7 H, Neut % (Auto) 64.3, Lymph % (Auto) 26.9, [place] % (Auto) 7.3, Eos % (Auto) 0.9, Baso % (Auto) 0.5, Neut # (Auto) 6.0, Lymph # (Auto) 2.5, [place] # (Auto) 0.7, Eos # (Auto) 0.1, Baso # (Auto) 0.1, Sodium 142, Potassium 4.0, Chloride 105, Carbon Dioxide 25, Anion Gap 16.0 H, BUN 12, Creatinine 0.80, Estimated Creat Clear 166, Estimated GFR 114, Est GFR ( Amer) 138, Glucose 102 H, Calcium 10.0, Total Bilirubin 0.8, AST 45, ALT 27, Alkaline Phosphatase 83, Total Protein 8.7 H, Albumin 5.1 H, Globulin 3.6 H, Albumin/Globulin Ratio 1.4 12/24/24 12:10 12/24/24 12:10 Orders (Tests/Meds): ED MEDICATIONS Discontinued Medications Generic Name Dose Route Start Last Admin Trade Name Freq PRN Reason Stop Dose Admin Acetaminophen 1,000 mg 12/24/24 10:50 12/24/24 11:04 Acetaminophen 500mg Tab PO 12/24/24 10:51 1,000 mg ONCE ONE Administration Ibuprofen 800 mg 12/24/24 10:50 12/24/24 11:04 Ibuprofen 400 Mg Tablet PO 12/24/24 10:51 800 mg ONCE ONE Administration ORDERS Category Date Time Status CXR 2 view (NOT portable) [XR chest 2V] Stat Exams 12/24/24 10:50 Completed Lumbar spine XR 2-3 views [XR lumbar spine 2-3V] Stat Exams 12/24/24 10:50 Completed Complete Blood Count Auto Diff Stat Lab 12/24/24 12:10 Completed Comprehensive Metabolic Panel Stat Lab 12/24/24 12:10 Completed Hemoglobin A1C Stat Lab 12/24/24 12:10 Received Rapid PCR Covid and Flu A/B Stat Lab 12/24/24 09:43 Completed Urinalysis and Microscopic Stat Lab 12/24/24 10:00 Completed Medical Decision Narrative: In summary, this patient is a 29-year-old male presenting to the Emergency Department for evaluation of cough, congestion. He also notes that he has had back pain for very long time going down his right leg, he also has had difficulty emptying his bladder for a long time and feels like he wakes up frequently at night to pee, and he is requesting screening for diabetes and kidney disease. Differential diagnoses considered include but are not limited to viral syndrome, pneumonia, sinusitis, diabetes, urinary retention, BPH, lumbar radiculopathy. Ruling out the most morbid conditions drove assessment. On exam, the patient is well-appearing. He sitting upright in no acute distress with normal vitals on cardiac telemetry, normal cardiopulmonary and abdominal exams. He is neurologically intact in his lower extremities with no alarm findings concerning for cauda equina syndrome or spinal cord compression. Postvoid bladder scan demonstrated 0 mL left in the bladder. Urinalysis is not concerning for infection. CBC, CMP, A1c obtained which are all reassuring, and I do not feel the patient has acute life-threatening pathology that would require admission based on lab evaluation and clinical exam. workup included chest x-ray and lumbar spine x-ray as well. I independently interpreted x-ray prior to the radiologist read and noted no spine fracture, no pneumothorax, no large consolidation concerning for pneumonia. Please see their read for final interpretation. Ultimately at this time, I feel patient can follow-up outpatient for further evaluation and management of his chronic complaints. For his current cough and congestion which was the presenting complaint, it is possible he could be developing a sinusitis given worsening congestion and sputum production in the setting of over 1 week of URI symptoms. For this, will prescribe doxycycline, as he is penicillin allergic. I feel he is appropriate for discharge home with close follow-up with primary care. Strict return precautions were given as well as a PCP list Critical Care Critical Care Time Critical Care Time: No
[2024-12-24 21:07] LABS: Hemoglobin A1C 5.1 % (4.0-6.0)
== END 2024-12-24 12:50 | disposition home or self-care (01) ==
PROVIDERS: Emergency Provider Emergency Medicine
DX: J06.9 Acute upper respiratory infection, unspecified (principal); R35.0 Frequency of micturition; M54.50 Low back pain, unspecified; R05.9 Cough, unspecified; R09.81 Nasal congestion; R43.8 Other disturbances of smell and taste; R22.41 Localized swelling, mass and lump, right lower limb
CPT/HCPCS: 71046; 72100; 80053; 81001; 83036; 85025; 87636; 99283